=== PATIENT | female | born 1995 | race Caucasian/White ===

== ENCOUNTER 2023-01-15 14:34 | Emergency (ER) | payer OTHER ==
[2023-01-15 14:41] VITALS: BMI 34.9
[2023-01-15] MEDS ORDERED: ONDANSETRON 4 MG/2 ML VIAL IVPUSH ONE (15:00)
[2023-01-15] MEDS ORDERED: SODIUM CHLORIDE 1,000 ML IV STA (15:00)
[2023-01-15] MEDS ORDERED: ONDANSETRON 4 MG/2 ML VIAL ONE (15:21)
[2023-01-15 15:58] LABS: BASO % 0.5 % (0-2.0); EOS % 1.7 % (0-4.5); HEMATOCRIT 39.6 % (32.4-45.2); HEMOGLOBIN 13.3 GM/dL (10.7-15.3); LYMPH % 35.2 % (8-40); MCH 28.3 pg (25.7-33.7); MCHC 33.7 g/dl (32.0-36.0); MEAN CELL VOLUME 83.9 fl (80-96); MEAN PLT VOLUME 7.4 fl (7.5-11.1); MONO % 5.3 % (3.8-10.2); NEUT % 57.3 % (42.8-82.8); PLATELET COUNT 377 10^3/uL (134-434); RBC 4.72 M/mm3 (3.60-5.2); RDW 13.1 % (11.6-15.6); WHITE BLOOD COUNT 9.3 K/mm3 (4.0-10.0)
[2023-01-15 16:35] LABS: POTASSIUM 4.3 mmol/L (3.5-5.1)
[2023-01-15 16:39] LABS: CALCIUM 9.1 mg/dL (8.5-10.1)
[2023-01-15 16:40] LABS: ALBUMIN 3.9 g/dl (3.4-5.0); BLOOD UREA NITROGEN 13.5 mg/dL (7-18)
[2023-01-15 16:43] LABS: CREATININE 0.7 mg/dL (0.55-1.3)
[2023-01-15 16:44] LABS: BILIRUBIN,TOTAL 0.6 mg/dL (0.2-1); TOT PROT 7.8 g/dl (6.4-8.2)
[2023-01-15 17:43] LABS: MAGNESIUM 2.3 mg/dL (1.8-2.4)
[2023-01-15 18:37] VITALS: BP 122/76; PULSE 72; RESP 16; TEMP 98.3
== END 2023-01-15 18:37 | disposition home or self-care (01) ==
LOC: JER 14:34
PROC: 3E033GC Introduction of Other Therapeutic Substance into Peripheral Vein, Percutaneous Approach (ICD-10-PCS; principal; 2023-01-15)
PROC: 3E0337Z Introduction of Electrolytic and Water Balance Substance into Peripheral Vein, Percutaneous Approach (ICD-10-PCS; 2023-01-15)
DX: R11.2 Nausea with vomiting, unspecified (principal); T50.905A Adverse effect of unspecified drugs, medicaments and biological substances, initial encounter
CPT/HCPCS: 36415; 71046-TC-FY; 80053; 83690; 83735; 84703; 85025; 93005; 93010; 99285-25

== ENCOUNTER 2024-07-27 05:28 | Day surgery (SDC) | payer OTHER ==
[2024-07-22 15:51] VITALS: BMI 30.9
[2024-07-27] MEDS ORDERED: DEXAMETHASONE SOD PHOSPHATE 4 MG/1 ML VIAL ONE (10:34)
[2024-07-27] MEDS ORDERED: LIDOCAINE HCL/PF 2% SDV 5ML VIAL ONE (10:34)
[2024-07-27] MEDS ORDERED: ONDANSETRON 4 MG/2 ML VIAL ONE (10:34)
[2024-07-27] MEDS ORDERED: PROPOFOL 20 ML ONE (10:34)
[2024-07-27] MEDS ORDERED: MIDAZOLAM HCL 2 MG/2 ML SINGLE DOSE VIAL ONE (10:34)
[2024-07-27] MEDS ORDERED: VASopressin 20 UNITS/ML VIAL IV ONE (11:25)
[2024-07-27] MEDS ORDERED: ONDANSETRON 4 MG/2 ML VIAL IVPUSH PRN (12:01)
[2024-07-27] MEDS ORDERED: ACETAMINOPHEN INJECTION 100 ML ONE (12:23)
[2024-07-27] MEDS: ACETAMINOPHEN 1000 MG/100 ML BAG IVPB ONE (12:27)
[2024-07-27] MEDS: LACTATED RINGERS SOLUTION 1,000 ML IV SCH (12:28)
[2024-07-27 13:23] VITALS: RESP 18
[2024-07-27 13:59] VITALS: BP 127/77; PULSE 86; TEMP 98.2
== END 2024-07-27 13:50 | disposition home or self-care (01) ==
LOC: JASU-SURG 05:28
PROVIDERS: ATTEND Obstetrics & Gynecology
PROC: 0UBC7ZZ Excision of Cervix, Via Natural or Artificial Opening (ICD-10-PCS; principal; 2024-07-27 11:00)
DX: R87.613 High grade squamous intraepithelial lesion on cytologic smear of cervix (HGSIL) (principal)
CPT/HCPCS: 81025; 88305-TC; 88307-TC; 88341-TC; 88342-TC; 94760; J0131

== ENCOUNTER 2024-11-25 07:21 | Day surgery (SDC) | payer OTHER ==
[2024-11-23 13:33] VITALS: BMI 31.8
[2024-11-25] MEDS ORDERED: ACETAMINOPHEN 500 MG TABLET (FP) PO PRN (08:42)
[2024-11-25 09:41] VITALS: RESP 18
[2024-11-25] MEDS ORDERED: TRIAMCINOLONE ACET 40MG/1ML VIAL ONE (10:25)
[2024-11-25 11:37] VITALS: BP 127/71; PULSE 73; TEMP 97.9
== END 2024-11-25 11:15 | disposition home or self-care (01) ==
LOC: JASU-SURG 07:21
PROVIDERS: ATTEND Pain Medicine Pain Medicine
PROC: 3E0U3BZ Introduction of Anesthetic Agent into Joints, Percutaneous Approach (ICD-10-PCS; 2024-11-25)
PROC: 3E0U33Z Introduction of Anti-inflammatory into Joints, Percutaneous Approach (ICD-10-PCS; principal; 2024-11-25 10:30)
DX: M53.3 Sacrococcygeal disorders, not elsewhere classified (principal)
CPT/HCPCS: 76000-TC-FY; 81025